=== PATIENT | female | born 1975 | race Caucasian/White ===

== ENCOUNTER 2016-09-11 12:47 | Emergency (ER) | payer OTHER ==
[~2016-09-11] VITALS: Ht 175.3 cm; Wt 81.6 kg
[~2016-09-11 12:47] MED LIST: ACET50TA PO; IBUP200C PO; IBUP80TA PO; MOTR200T44 PO; PRENTAB55 PO; TYLE325T5 PO; [UNRECOGNIZED DRUG - OTHER] PO
[2016-09-11] MEDS ORDERED: CYCL10TA PO (13:01)
[2016-09-11] MEDS ORDERED: ESCI10TA2 PO (13:01)
[2016-09-11] MEDS ORDERED: DIAZ5TAB PO (13:01)
[2016-09-11 14:30] LABS: BASO # 0.1 K/mm3 (0.0-0.2); BASO % 0.8 % (0.0-1.0); EOS # 0.2 K/mm3 (0.0-0.50); EOS % 2.8 % (0.0-3.0); LARGE UNSTAINED CELL # 0.1 K/mm3 (0.0-0.4); LARGE UNSTAINED CELL % 1.6 % (0.0-4.0); LYMPH # 1.5 K/mm3 (1.5-4.5); LYMPH % 21.8 % (24.0-44.0); MEAN CORPUSCULAR HEMOGLOBIN 32.6 pg (27.0-33.0); MEAN CORPUSCULAR HGB CONC 33.5 g/dl (32.0-36.5); MEAN CORPUSCULAR VOLUME 97.2 fl (80.0-96.0); MONO # 0.4 K/mm3 (0.0-0.8); MONO % 6.1 % (0.0-5.0); NEUTROPHILS # 4.4 K/mm3 (1.8-7.7); NEUTROPHILS % 66.9 % (36.0-66.0); PLATELET COUNT, AUTOMATED 239 k/mm3 (150-450); RED CELL DISTRIBUTION WIDTH 12.2 % (11.5-14.5); WHITE BLOOD COUNT 6.6 K/mm3 (4.0-10.0)
[2016-09-11 14:48] LABS: CONTROL LINE UCG INT CTR LINE PRESENT
[2016-09-11 14:52] LABS: ALBUMIN 3.6 GM/DL (3.2-5.2); ALBUMIN/GLOBULIN RATIO 1.09 (1.00-1.93); ALKALINE PHOSPHATASE 59 U/L (45-117); ALT/SGPT 23 U/L (12-78); ANION GAP 5 MEQ/L (8-16); AST/SGOT 13 U/L (15-37); BILIRUBIN,DIRECT < 0.1 MG/DL (0.0-0.2); BILIRUBIN,TOTAL 0.3 MG/DL (0.2-1.0); BLOOD UREA NITROGEN 12 MG/DL (7-18); CARBON DIOXIDE LEVEL 30 MEQ/L (21-32); CHLORIDE LEVEL 105 MEQ/L (98-107); CREATININE FOR GFR 0.72 MG/DL (0.55-1.02); GLOMERULAR FILTRATION RATE > 60.0 (>60); GLUCOSE, FASTING 70 MG/DL (70-105); POTASSIUM SERUM 3.8 MEQ/L (3.5-5.1); SODIUM LEVEL 140 MEQ/L (136-145); TOTAL PROTEIN 6.9 GM/DL (6.4-8.2)
[2016-09-11 15:40] VITALS: BP 122/74
--- NOTE | 2016-09-11 16:30 | REP ---
CT ABDOMEN AND PELVIS: REASON: Right sided flank pain. COMPARISON: None. Subsegmental atelectatic changes are seen in the lung bases. Limited evaluation of the solid intraabdominal organs show no gross abnormalities. Surgical clips are seen in the gallbladder fossa from previous cholecystectomy. There is no nephroureterolithiasis, hydronephrosis, or hydroureter. There are no urinary bladder calcifications. No free fluid or free air is seen in the abdomen. Limited evaluation of the abdominal aorta and paraaortic regions show no gross abnormalities. Limited evaluation of the bowel loops and their mesenteries show no gross abnormalities. CT PELVIS: In the right hemipelvis there is a 4 cm sized low density mass which has water Hounsfield unit readings, like representing an ovarian cyst. There is a T-shaped radiodensity in the uterus consistent with an IUD. There is no free fluid or free air in the pelvis. The pelvic bowel loops and their mesenteries are unremarkable. The osseous structures are within normal limits. IMPRESSION: Right sided adnexal cyst, probably of ovarian origin as described above. Signed by Rogelio Mendez DO 09/12/2016 09:55 A
== END 2016-09-11 15:51 | disposition home or self-care (01) ==
LOC: M ED 14:24
DX: N83.201 Unspecified ovarian cyst, right side (principal); M51.9 Unspecified thoracic, thoracolumbar and lumbosacral intervertebral disc disorder; F41.0 Panic disorder [episodic paroxysmal anxiety]; K58.9 Irritable bowel syndrome, unspecified; N80.9 Endometriosis, unspecified; Z87.820 Personal history of traumatic brain injury; Z79.899 Other long term (current) drug therapy; Z88.5 Allergy status to narcotic agent